=== PATIENT | female | born 1995 | race Caucasian/White ===

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

== ENCOUNTER 2017-05-05 18:53 | Inpatient (IN) | payer BC, OTHER ==
[~2017-05-05] VITALS: Ht 157.5 cm; Wt 63.1 kg
[~2017-05-05 18:53] MED LIST: AMOX1TAB9 PO; PRENAT PO
[2017-05-05 19:41] VITALS: Ht 157.5 cm; Wt 63.1 kg
[2017-05-05 19:42] VITALS: BP 120/76; PULSE 75; RESP 18
[2017-05-05] MEDS ORDERED: LACTATED RINGER'S 1,000 ML IV PRN (20:05)
[2017-05-05] MEDS: LACTATED RINGER'S 1,000 ML IV SCH ×2 (20:23→22:02)
[2017-05-05] MEDS ORDERED: LIDOCAINE 1% (MPF) 30 ML INJ INJ PRN (20:30)
[2017-05-05] MEDS ORDERED: CARBOPROST 250 MCG INJ IM PRN (20:30)
[2017-05-05] MEDS ORDERED: AMPICILLIN 2 GM/NS (PMX) 100 ML IV ONE (20:30)
[2017-05-05] MEDS ORDERED: OXYTOCIN 30 UNITS/LR 500 ML IV PRN (20:30)
[2017-05-05] MEDS ORDERED: METHYLERGONOVINE 0.2 MG INJ IM PRN (20:30)
[2017-05-05] MEDS ORDERED: IBUPROFEN 600 MG TAB PO PRN (20:30)
[2017-05-05] MEDS ORDERED: OXYTOCIN 30 UNITS/LR 500 ML IV SCH ×2 (20:30)
[2017-05-05] MEDS ORDERED: ACETAMINOPHEN/CODEINE #3 TAB PO PRN (20:30)
[2017-05-05] MEDS ORDERED: MISOPROSTOL 200 MCG TAB PR PRN (20:30)
[2017-05-05] MEDS ORDERED: BUTORPHANOL 2 MG INJ IV PRN (20:30)
[2017-05-05 21:19] LABS: ADD SCAN DIFF NO
[2017-05-05 21:21] LABS: BASOPHILS % 0.2 % (0.0-2.0); EOSINOPHILS # 0.1 10^3/ul (0.0-0.5); EOSINOPHILS % 0.4 % (0.0-7.0); HEMOGLOBIN 11.2 g/dl (12.0-16.0); LYMPHOCYTES # 2.7 10^3/ul (0.8-2.9); LYMPHOCYTES % 20.9 % (18.0-55.0); MEAN CORPUSCULAR HEMOGLOBIN 30.4 pg (29.0-33.0); MEAN CORPUSCULAR HGB CONC 32.9 g/dl (32.0-37.0); MEAN CORPUSCULAR VOLUME 92.1 fl (72.0-104.0); MEAN PLATELET VOLUME 11.3 fl (7.4-10.4); MONOCYTE # 0.8 10^3/ul (0.3-0.9); MONOCYTES % 6.1 % (0.0-13.0); NEUTROPHIL # 9.2 10^3/ul (1.6-7.5); NEUTROPHILS % 71.9 % (30.0-74.0); PLATELET COUNT 239 10^3/UL (140-415); RED BLOOD COUNT 3.69 10^6/ul (4.20-5.40); RED CELL DISTRIBUTION WIDTH 14.2 % (11.5-14.5); WHITE BLOOD COUNT 12.7 10^3/ul (4.8-10.8)
[2017-05-05 21:39] LABS: INR 0.88; PARTIAL THROMBOPLASTIN TIME 27.4 Sec (25.0-35.0); PROTIME 11.9 Sec (12.2-14.2); PT RATIO 0.9
[2017-05-05] MEDS ORDERED: FENTAnyl 2MCG/ML-ROPIV 0.2% 100 ML ONE (22:17)
[2017-05-05] MEDS ORDERED: NALOXONE (0.4 MG/ML) INJ IV PRN (23:00)
[2017-05-05] MEDS ORDERED: FENTAnyl 2MCG/ML-ROPIV 0.2% 100 ML BAG EPI SCH (23:00)
[2017-05-05 23:46] LABS: BARBITURATES Negative (NEGATIVE); BENZODIAZEPINES Negative (NEGATIVE); CANNABINOIDS Negative (NEGATIVE)
[2017-05-05 23:47] LABS: COCAINE Negative (NEGATIVE); OPIATES Negative (NEGATIVE)
[2017-05-06] MEDS ORDERED: AMPICILLIN 1 GM/NS (PMX) 50 ML IV SCH (00:30)
[2017-05-06] MEDS ORDERED: LACTATED RINGER'S 1,000 ML IV* SCH (02:24)
[2017-05-06] MEDS ORDERED: DEXTROSE 5%-LR 1,000 ML IV SCH (02:24)
[2017-05-06] MEDS ORDERED: ONDANSETRON 4 MG INJ IV PRN (02:30)
[2017-05-06] MEDS ORDERED: OXYCODONE/ASPIRIN (4.88/325) TAB PO PRN (02:30)
[2017-05-06] MEDS ORDERED: BENZOCAINE 20% 56 ML SPRAY TOP PRN (02:30)
[2017-05-06] MEDS ORDERED: MISOPROSTOL 200 MCG TAB PR PRN (02:30)
[2017-05-06] MEDS ORDERED: METHYLERGONOVINE 0.2 MG INJ IM PRN (02:30)
[2017-05-06] MEDS ORDERED: OXYTOCIN 30 UNITS/LR 500 ML IV PRN (02:30)
[2017-05-06] MEDS ORDERED: WITCH HAZEL/GLYCERIN PAD PR PRN (02:30)
[2017-05-06] MEDS ORDERED: CARBOPROST 250 MCG INJ IM PRN (02:30)
[2017-05-06] MEDS ORDERED: SENNA/DOCUSATE NA (8.6MG/50MG) TAB PO PRN (02:30)
[2017-05-06] MEDS ORDERED: DIBUCAINE 1% 30 GM OINT PR PRN (02:30)
[2017-05-06] MEDS ORDERED: LANOLIN 7 GM TUBE TOP PRN (02:30)
[2017-05-06] MEDS ORDERED: ACETAMINOPHEN 325 MG TAB PO PRN (02:30)
[2017-05-06] MEDS ORDERED: DIPHENHYDRAMINE 50 MG INJ IV PRN (02:30)
[2017-05-06] MEDS ORDERED: ZOLPIDEM 5 MG TAB PO PRN (02:30)
--- NOTE | 2017-05-06 02:31 | HP ---
Date/Time of Note Date/Time of Note DATE: 05/06/17 TIME: 02:25 OB - History Hx of Present Free Text/Dictation Late Entry Note. Pt seen on 05/05/17 21 Year-old G1 with SIUP at 38 weeks presents with a chief complaint of ucs and leakage of fluid at 18:30 today. She has been receiving her care with an [facility]. She states good movement. She denies nausea, vomiting , shortness of breath, chest pain, and abdominal pain between contractions, headache, visual changes, vaginal bleeding Chief Complaint: leakage of fluid Care: Good Care Ultrasounds: Normal mid trimester US Obstetrical Complications: None Medical Complications: None Past Family/Social History * Past Medical, Surgical, Family and Obstetric Histories reviewed from chart. OB Admission Exam Vital Signs Vital Signs Vital Signs Date Time Temp Pulse Resp B/P Pulse Ox O2 Delivery O2 Flow Rate FiO2 05/05/17 19:42 98.7 75 18 120/76 Room Air Physical Exam HEENT: WNL Heart: Rhythm Normal Abdomen: WNL Extremities: Normal Cervical Dilatation: 3cm Effacement: 75% Station: -2 Membranes: Ruptured Amniotic Fluid: Clear Heart Rate: 140's Accelerations: Accelerations Present Decelerations: No Decelerations Varibility: Moderate Contractions on Admission: < 5 Minutes Apart Intensity: Moderate Last 72 hours Lab Results CBC & BMP 05/05/17 20:40 OB Assessment/Plan Other plan: 21 Year-old G1 with SIUP at 38 weeks presents with SROM in labor - Continious EFM, toco - CBC, blood type and screen - Analgesia options with R/B/A discussed in detail with patient - Epidural per patient request - Please see the orders - Obtain her PN record tomorrow Admission, procedures, expectations, risks and possible complications have been discussed in detail with the patient. Risk of vaginal delivery including but not limited to bleeding, infection, cervical laceration, placental retention, injury to fetus, blood transfusion, blood transfusion related infection, risk of anesthesia, adhesion, cervical laceration, episiotomy/laceration, possible delivery with risk of bleeding, infection, injury to other organs ( bowel, bladder, ureter, vessels, nerves), injury to fetus, blood transfusion, blood transfusion related infection, risk of anesthesia, scar and hernia formation, needs for future , removal of uterus or any other indicated surgery discussed with the patient. She expressed understanding and repeats the risks. All of her questions were answered; all appropriate consents will be signed. PHYSICIAN'S VERIFICATION OF INFORMED CONSENT: The patient was counseled regarding the procedure, its indications, risks, potential complications and alternatives and any questions were answered. Consent was obtained. PLANNED PROCEDURE/TREATMENT: Vaginal delivery with possible vacuum/forceps delivery episiotomy, repair of laceration possible delivery PHYSICIAN'S VERIFICATION OF INFORMED CONSENT FOR BLOOD TRANSFUSION: There is a reasonable possibility that blood transfusion will be necessary as a result of the patient's procedure. I have discussed the following with the patient/patient's legal client service representative: An explanation of the benefits and risks of the transfusion of blood or blood products and the possible alternatives. Al questions have been answered to the patient's/patients legal representatives satisfaction. INFORMED CONSENT: The patient has been informed of: - The nature of the proposed care, treatment, services, medic- Potential benefits, risks or side effects, including potential problems related to recuperation. - The likelihood of achieving care treatment and service goals. - Reasonable alternatives to the proposed care, treatment and service. - The relevant risks, benefits and side effects related to alternatives, including the possible results of not receiving care, treatment and services. - When indicated, any limitations on the confidentiality of information learned from or about the patient. - If appropriate, the risks, benefits and alternatives of the drugs to be used for sedation/analgesia including moderate sedation. - If appropriate, patient has been provided information on the risks, benefits and alternatives to the transfusion of blood and/or blood products. WALLACE MCKAY May 06, 2017 02:31
--- NOTE | 2017-05-06 02:34 | LDN ---
Date/Time of Note Date/Time of Note DATE: 05/06/17 TIME: 02:31 Delivery Summary 21 Year-old G1 with SIUP at 38 weeks delivered a female at01:03. Weight: 7 lbs 11 oz (3500) Placenta Delivered: Spontaneously Meconium: none Episiotomy: No Indication for episiotomy first degree labial Laceration repair: 3/0 vicryl SH Anesthesia type: Epidural Estimated blood loss: 250 Sponge & Needle done & correct: Yes All needle counts correct: Yes Any foreign bodies felt in the: No Problems: Infant Delivery Information Sex Infant Sex: female Apgars 1 Minute: 9 5 Minute: 9 10 Minute: 10 Suctioning Nose & mouth suctioned at [place]: Yes Umbilical Cord Umbilical cord with: 3 Vessels Cord presentations: no nuchal cord Cord Blood was obtained: Yes WALLACE MCKAY May 06, 2017 02:34
[2017-05-06 02:45] VITALS: BP 108/65; PULSE 60; RESP 20
[2017-05-06 04:21] VITALS: BP 110/69; PULSE 70; RESP 20
[2017-05-06] MEDS: IBUPROFEN 600 MG TAB PO SCH ×3 (06:19→17:43)
[2017-05-06 08:30] VITALS: BP 112/62; PULSE 78; RESP 18
[2017-05-06 12:05] VITALS: BP 108/60; PULSE 75; RESP 18
[2017-05-06 16:18] VITALS: BP 120/59; PULSE 83; RESP 18
[2017-05-06 19:45] VITALS: BP 106/66; PULSE 69; RESP 18
[2017-05-06] MEDS ORDERED: DOCUSATE SODIUM 100 MG CAP PO SCH (21:00)
[2017-05-06] MEDS ORDERED: SENNA TAB PO ONE (21:00)
[2017-05-07] MEDS: IBUPROFEN 600 MG TAB PO SCH ×4 (00:10→17:42)
[2017-05-07 03:45] VITALS: BP_SYST 103; BP_SYST 115; BP_DIAS 59; BP_DIAS 61; PULSE 87
[2017-05-07 07:38] LABS: ADD SCAN DIFF NO; BASOPHILS % 0.1 % (0.0-2.0); EOSINOPHILS # 0.2 10^3/ul (0.0-0.5); EOSINOPHILS % 1.6 % (0.0-7.0); HEMATOCRIT 28.4 % (37.0-47.0); HEMOGLOBIN 9.6 g/dl (12.0-16.0); LYMPHOCYTES # 3.2 10^3/ul (0.8-2.9); LYMPHOCYTES % 31.9 % (18.0-55.0); MEAN CORPUSCULAR HGB CONC 33.8 g/dl (32.0-37.0); MEAN CORPUSCULAR VOLUME 94.7 fl (72.0-104.0); MEAN PLATELET VOLUME 10.7 fl (7.4-10.4); MONOCYTE # 0.7 10^3/ul (0.3-0.9); MONOCYTES % 7.4 % (0.0-13.0); NEUTROPHIL # 5.8 10^3/ul (1.6-7.5); NEUTROPHILS % 58.6 % (30.0-74.0); PLATELET COUNT 224 10^3/UL (140-415); RED CELL DISTRIBUTION WIDTH 14.5 % (11.5-14.5)
[2017-05-07 08:00] VITALS: BP 111/70; PULSE 70; RESP 18
[2017-05-07 12:40] LABS: RUBELLA ANTIBODY - IGG 5.54 index
--- NOTE | 2017-05-07 13:47 | PN ---
Date/Time of Note Date/Time of Note DATE: 05/07/17 TIME: 13:45 OB Subjective Subjective Subjective Denies any complaint. Decreased vaginal bleeding. Breast-feeding. Denies any depressive symptoms. Denies any dizziness, lightheadedness, shortness of breath or chest pain OB Objective Objective Objective GA: A&O, NAD Abdomen: Soft, non fundal tenderness. Fundus palpable below the umbilicus and nontender. Extremities: No calf tenderness, no click, no cords palpable Breasts: Not engorged, no nipple fissure, no evidence of mastitis Hematology - 72 Hrs Test 05/05/17 20:40 05/07/17 07:20 White Blood Count 12.710^3/ul (4.8-10.8) #H 10.010^3/ul (4.8-10.8) # Red Blood Count 3.6910^6/ul (4.20-5.40) L 3.0010^6/ul (4.20-5.40) L Hemoglobin 11.2g/dl (12.0-16.0) L 9.6g/dl (12.0-16.0) L Hematocrit 34.0% (37.0-47.0) L 28.4% (37.0-47.0) L Mean Corpuscular Volume 92.1fl (72.0-104.0) 94.7fl (72.0-104.0) Mean Corpuscular Hemoglobin 30.4pg (29.0-33.0) 32.0pg (29.0-33.0) Mean Corpuscular Hemoglobin Concent 32.9g/dl (32.0-37.0) 33.8g/dl (32.0-37.0) Red Cell Distribution Width 14.2% (11.5-14.5) 14.5% (11.5-14.5) Platelet Count 74591^3/UL (140-415) 09487^3/UL (140-415) Mean Platelet Volume 11.3fl (7.4-10.4) #H 10.7fl (7.4-10.4) H Neutrophils % 71.9% (30.0-74.0) 58.6% (30.0-74.0) Lymphocytes % 20.9% (18.0-55.0) 31.9% (18.0-55.0) Monocytes % 6.1% (0.0-13.0) 7.4% (0.0-13.0) Eosinophils % 0.4% (0.0-7.0) 1.6% (0.0-7.0) Basophils % 0.2% (0.0-2.0) 0.1% (0.0-2.0) Nucleated Red Blood Cells % 0.0/100WBC (0.0-0.0) 0.0/100WBC (0.0-0.0) Neutrophils # 9.210^3/ul (1.6-7.5) H 5.810^3/ul (1.6-7.5) Lymphocytes # 2.710^3/ul (0.8-2.9) 3.210^3/ul (0.8-2.9) H Monocytes # 0.810^3/ul (0.3-0.9) 0.710^3/ul (0.3-0.9) Eosinophils # 0.110^3/ul (0.0-0.5) 0.210^3/ul (0.0-0.5) Basophils # 0.010^3/ul (0.0-0.1) 0.010^3/ul (0.0-0.1) Nucleated Red Blood Cells # 0.010^3/ul (0.0-0.0) 0.010^3/ul (0.0-0.0) OB Assessment/Plan Other Assessment: Status post day #1 Anemia. status. Asymptomatic Start iron once a day with vitamin Routine care Anticipate DC home tomorrow CHANTELL DICK MD May 07, 2017 13:47
[2017-05-07 16:30] VITALS: BP 104/66; PULSE 65; RESP 19
[2017-05-07 20:30] VITALS: BP 100/58; PULSE 80; RESP 16
[2017-05-08] MEDS: IBUPROFEN 600 MG TAB PO SCH ×3 (00:07→11:56)
[2017-05-08 04:00] VITALS: BP 110/68; PULSE 76; RESP 18
[2017-05-08 08:00] VITALS: BP 118/58; PULSE 73; RESP 18
[2017-05-08] MEDS ORDERED: DIPHTH/TET/ACEL PERTUSS (ADULT) 0.5 ML VIAL IM* ONE (09:00)
[2017-05-08] MEDS ORDERED: MEASLES,MUMPS,RUBELLA VACCINE INJ SC* ONE (09:00)
--- NOTE | 2017-05-08 10:49 | DS ---
Date/Time of Note Date/Time of Note DATE: 05/08/17 TIME: 10:46 Obstetrical Discharge Record Final Diagnosis Final Diagnosis: Term delivered Vaginal Delivery Obstetrical Delivery: Spontaneous Condition on Discharge Physical Assessment Last Vitals: Current Medications Medications (Trade) Dose Ordered Sig/Tyrone Route PRN Reason Start Time Stop Time Status Last Admin Dose Admin Lactated Ringer's 1,000 ml @ 125 mls/hr Q8H IV 05/05/17 20:02 05/06/17 03:09 DC 05/05/17 22:02 Ampicillin 100 ml @ 100 mls/hr ONCE ONCE IV 05/05/17 20:30 05/05/17 21:29 DC 05/05/17 22:38 Ampicillin (Ampicillin 1 Gm/ NS (Pmx)) 50 ml @ 100 mls/hr Q4H IV 05/06/17 00:30 05/06/17 03:09 DC Butorphanol Tartrate (Stadol) 2 mg Q2H PRN IV PAIN 05/05/17 20:30 05/06/17 03:09 DC Lidocaine 30 ml 30 ml ONCE PRN INJ EPISIOTOMY/TEARING 05/05/17 20:30 05/06/17 03:09 DC Oxytocin/Lactated Ringer's 500 ml @ 125 mls/hr ONCE -MAY REPEAT X1 IV 05/05/17 20:30 05/06/17 03:09 DC 05/06/17 01:06 Oxytocin/Lactated Ringer's 500 ml @ 125 mls/hr ONCE IV 05/05/17 20:30 05/06/17 03:09 DC 05/06/17 01:36 Ibuprofen (Motrin) 600 mg ONCE PRN PO Mild Pain (Pain Score 1-3) 05/05/17 20:30 05/06/17 03:10 DC Acetaminophen/ Codeine Phosphate 2 tab 2 tab ONCE PRN PO Moderate to Severe Pain (4-10) 05/05/17 20:30 05/06/17 03:10 DC Lactated Ringer's 1,000 ml @ 2,000 mls/hr Q30M PRN IV PRE-EPIDURAL BOLUS 05/05/17 20:05 05/06/17 03:10 DC 05/05/17 22:38 Oxytocin/Lactated Ringer's 500 ml @ 0 mls/hr ONCE PRN IV For Hemorrhage Management 05/05/17 20:30 05/06/17 03:10 DC Methylergonovine Maleate (Methergine) 0.2 mg ONCE PRN IM VAGINAL BLEEDING 05/05/17 20:30 05/06/17 03:10 DC Carboprost Tromethamine (Hemabate) 250 mcg ONCE PRN IM VAGINAL BLEEDING 05/05/17 20:30 05/06/17 03:10 DC Misoprostol 1000 mcg 1,000 mcg ONCE PRN RI VAGINAL BLEEDING 05/05/17 20:30 05/06/17 03:10 DC Fentanyl/ Ropivacaine 100 ml @ STK-MED ONCE .ROUTE 05/05/17 22:17 05/05/17 22:18 DC Naloxone HCl (Narcan) 0.2 mg Q2M PRN IV FOR RESP RATE 8 OR LESS 05/05/17 23:00 05/06/17 03:10 DC Fentanyl/ Ropivacaine 100 ml 100 ml EPIDURAL (PCEA) EPI 05/05/17 23:00 05/06/17 03:10 DC Lactated Ringer's (Lr) 1,000 ml @ 125 mls/hr Q8H IV* 05/06/17 02:24 05/06/17 16:15 DC Ibuprofen (Motrin) 600 mg Q6 PO 05/06/17 06:00 05/08/17 05:46 Acetaminophen (Tylenol Tab) 650 mg Q4H PRN PO PAIN LEVEL 1-5 05/06/17 02:30 Oxycodone/Aspirin (Percodan) 1 tab Q3H PRN PO PAIN LEVEL 1-5 05/06/17 02:30 Ondansetron HCl (Zofran Inj) 4 mg Q6H PRN IV NAUSEA AND/OR VOMITING 05/06/17 02:30 Diphenhydramine HCl (Benadryl) 25 mg Q6H PRN IV PRURITUS 05/06/17 02:30 Zolpidem Tartrate (Ambien) 5 mg QHS PRN PO INSOMNIA 05/06/17 02:30 Senna/Docusate Sodium (Senokot-S) 1 tab BID PRN PO CONSTIPATION 05/06/17 02:30 Witch [place]igh/ Glycerin (Tucks Pads) 1 pad BEDSIDE MEDICATION PRN RI HEMORRHOID/EPISIOTMY PAIN 05/06/17 02:30 Benzocaine (Dermoplast Cowgill) 1 spray BEDSIDE MEDICATION PRN TOP HEMORRHOID/EPISIOTMY PAIN 05/06/17 02:30 Dibucaine (Nupercainal) 1 applic BEDSIDE MEDICATION PRN RI HEMORRHOID/EPISIOTMY PAIN 05/06/17 02:30 Lanolin (Hie-V-Masdqk) 1 applic BEDSIDE MEDICATION PRN TOP BEDSIDE FOR ELIZA TO NIPPLES 05/06/17 02:30 05/07/17 17:45 Measles/Mumps/ Rubella Vaccine Live (Mmr Ii Vaccine) 0.5 ml ONCE ONCE SC* 05/08/17 09:00 05/08/17 09:01 DC Diphtheria/ Tetanus/Acell Pertussis 0.5 ml 0.5 ml ONCE ONCE IM* 05/08/17 09:00 05/08/17 09:01 DC Oxytocin/Lactated Ringer's 500 ml @ 0 mls/hr ONCE PRN IV For Hemorrhage Management 05/06/17 02:30 05/06/17 06:21 Methylergonovine Maleate (Methergine) 0.2 mg ONCE PRN IM VAGINAL BLEEDING 05/06/17 02:30 Carboprost Tromethamine (Hemabate) 250 mcg ONCE PRN IM VAGINAL BLEEDING 05/06/17 02:30 Misoprostol 1000 mcg 1,000 mcg ONCE PRN RI VAGINAL BLEEDING 05/06/17 02:30 Dextrose/Lactated Ringer's (D5-Lr) 1,000 ml @ 125 mls/hr Q8H IV 05/06/17 02:24 05/06/17 16:15 DC Docusate Sodium (Colace) 100 mg BID PO 05/06/17 21:00 Cancel Senna (Senokot) 1 tab DAILY ONCE PO 05/06/17 21:00 05/06/17 21:01 Cancel Voiding: Yes Bowel Movement: Yes Breast: Soft, non-tender Fundus: Firm Episiotomy: 1st degree labial laceration repaired. Calf Tenderness: No Patient Condition: Good ROXANNA ALVARADO MD May 08, 2017 10:49
== END 2017-05-08 15:10 | disposition home or self-care (01) | DRG 775 ==
LOC: L-D 18:53 → OBT 18:53 → L-D 20:01 → PP1 05-06 02:51
PROVIDERS: ADMIT Obstetrics & Gynecology; ATTEND Obstetrics & Gynecology
PROC: 10E0XZZ Delivery of Products of Conception, External Approach (ICD-10-PCS; principal; 2017-05-06)
PROC: 0UQMXZZ Repair Vulva, External Approach (ICD-10-PCS; 2017-05-06)
PROC: 3E00X4Z Introduction of Serum, Toxoid and Vaccine into Skin and Mucous Membranes, External Approach (ICD-10-PCS; 2017-05-08)
DX: O70.0 First degree perineal laceration during delivery (principal); Z23 Encounter for immunization; Z3A.38 38 weeks gestation of pregnancy; Z37.0 Single live birth
CPT/HCPCS: 36415; 62319; 80307; 85025; 85610; 85730; 86592; 86762; 86900; 86901; 87340; 90715; G0463; J0290; J2590; J3010; J7120; J7121